=== PATIENT | female | born 1995 | race Caucasian/White ===

== ENCOUNTER 2025-08-07 06:58 | Emergency (ER) | payer MEDICAID ==
[~2025-08-07] VITALS: Ht 162.6 cm; Wt 55.0 kg
[2025-08-07 07:05] VITALS: O2SAT 98
[2025-08-07 07:33] LABS: BASOPHILS % 0.6 % (0.0-2.0); EOSINOPHILS % 1.2 % (0.0-5.0); HEMATOCRIT. 32.0 % (36.0-48.0); HEMOGLOBIN. 11.0 g/dL (12.0-16.0); LYMPHOCYTES % 21.5 % (20.0-50.0); MEAN PLATELET VOLUME 6.5 fl (7.4-10.4); MONOCYTES % 4.2 % (2.0-8.0); NEUTROPHILS % 72.5 % (40.0-76.0); PLATELET 455 x1000/uL (130-400); RED BLOOD CELL COUNT 3.89 mill/uL (4.2-5.4); RED CELL DISTRIBUTION WIDTH 15.1 % (11.6-14.6)
[2025-08-07 07:54] LABS: CREATININE 0.6 mg/dL (0.6-1.0); UREA NITROGEN BLOOD 20 mg/dL (9-23)
[2025-08-07 08:09] LABS: HCG SCREEN NEGATIVE
[2025-08-07] MEDS ORDERED: TOPUD PO (09:16)
[2025-08-07 09:53] VITALS: BP 107/69; PULSE 100; RESP 16; TEMP 36.8; O2SAT 100
== END 2025-08-07 10:10 | disposition home or self-care (01) ==
LOC: ER 07:18
DX: S20.219A Contusion of unspecified front wall of thorax, initial encounter (principal); R07.89 Other chest pain; Z89.512 Acquired absence of left leg below knee; R51.9 Headache, unspecified; Z95.828 Presence of other vascular implants and grafts; Y09 Assault by unspecified means; Y92.830 Public park as the place of occurrence of the external cause; Y93.89 Activity, other specified; Y99.8 Other external cause status
CPT/HCPCS: 36415; 71045; 74176; 80048; 84703; 85025; 93005; 99285